=== PATIENT | female | born 1960 | race Hispanic/Latino ===

== ENCOUNTER → 2021-07-30 | Outpatient (CLI) | payer BC | LOC: MAMMO 11:35 | PROVIDERS: ATTEND Internal Medicine | DX: Z12.31 Encounter for screening mammogram for malignant neoplasm of breast (principal) | CPT/HCPCS: 77067 ==

== ENCOUNTER → 2024-05-10 | Outpatient (REF) | payer MEDICARE | LOC: MAMMO 12:57 | PROVIDERS: ATTEND Internal Medicine | DX: Z12.31 Encounter for screening mammogram for malignant neoplasm of breast (principal) | CPT/HCPCS: 77067 ==